=== PATIENT | male | born 1970 | race Caucasian/White ===

== ENCOUNTER 2016-09-13 12:04 | Emergency (ER) | payer OTHER ==
[~2016-09-13] VITALS: Ht 175.3 cm; Wt 79.0 kg
[2016-09-13 12:06] VITALS: BP 158/90
[2016-09-13] MEDS ORDERED: LIDOCAINE 1%, 20ML ONE (12:37)
[2016-09-13] MEDS ORDERED: HYDROcodone/APAP 5/325 TABLET PO ONE (13:00)
[2016-09-13] MEDS ORDERED: LIDOCAINE 1%, 20ML SQ ONE (13:00)
[2016-09-13] MEDS ORDERED: DIPH,PERTUSS(ACELL),TET VAC/PF 0.5 ML IM-VACC ONE ×2 (13:00→13:09)
[2016-09-13] MEDS ORDERED: HYDROcodone/APAP 5/325 TABLET ONE (13:09)
== END 2016-09-13 13:31 | disposition home or self-care (01) ==
LOC: ED 13:25
DX: S61.211A Laceration without foreign body of left index finger without damage to nail, initial encounter (principal); W31.89XA Contact with other specified machinery, initial encounter; Y93.89 Activity, other specified; Y92.69 Other specified industrial and construction area as the place of occurrence of the external cause; Y99.8 Other external cause status
CPT/HCPCS: 12001; 90471; 90715